=== PATIENT | female | born 1970 | race Caucasian/White ===

== ENCOUNTER 2017-01-19 05:13 | Day surgery (SDC) | payer OTHER ==
[2017-01-13 16:35] VITALS: BMI 26.9
[2017-01-19] MEDS ORDERED: ePHEDrine SULFATE 50 MG/1 ML AMPULE ONE (07:27)
[2017-01-19] MEDS ORDERED: PROPOFOL 20 ML ONE ×4 (07:28)
[2017-01-19] MEDS ORDERED: MIDAZOLAM HCL 2 MG/2 ML SINGLE DOSE VIAL ONE (07:28)
[2017-01-19] MEDS ORDERED: ROCURONIUM BROMIDE 50 MG/5 ML VIAL ONE (07:28)
[2017-01-19] MEDS ORDERED: ceFAZolin SODIUM 1 GM VIAL ONE (07:33)
[2017-01-19] MEDS ORDERED: LIDOCAINE HCL/PF 2% SDV 5ML VIAL ONE (07:33)
[2017-01-19] MEDS ORDERED: KETOROLAC TROMETHAMINE 30 MG/1 ML VIAL ONE (07:33)
[2017-01-19] MEDS ORDERED: DEXAMETHASONE SOD PHOSPHATE 4 MG/1 ML VIAL ONE (07:33)
[2017-01-19] MEDS ORDERED: ceFAZolin SODIUM 1 GM VIAL IVPB ONE (09:56)
[2017-01-19] MEDS ORDERED: NEOSTIGMINE METHYLSULFATE 0.5 MG/ML - 10 ML MDV ONE (10:05)
[2017-01-19] MEDS ORDERED: BUPIVACAINE HCL/PF 0.5% (5MG/ML) 10 ML VIAL IJ ONE (10:46)
[2017-01-19] MEDS ORDERED: oxyCODONE HCL 5 MG TABLET PO PRN (11:36)
[2017-01-19] MEDS ORDERED: ONDANSETRON 4 MG/2 ML VIAL IVPUSH PRN (11:36)
[2017-01-19] MEDS ORDERED: LACTATED RINGERS SOLUTION 1,000 ML IV SCH (11:45)
[2017-01-19 13:01] VITALS: PULSE 82; TEMP 97.6
--- NOTE | 2017-01-19 13:49 | HP ---
Satellite [facility] - Chief Complaint Chief Complaint: Ovarian cyst History of Present Illness: 46 yo who desires tubal and removal of ovarian cyst History Source: Patient Limitations to Obtaining History: No Limitations - Past Medical History Allergies/Adverse Reactions: Allergies Allergy/AdvReac Type Severity Reaction Status Date / Time aspirin Allergy Severe Itching Verified 01/19/17 07:54 naproxen sodium [From Aleve] Allergy Severe Itching Verified 01/19/17 07:54 erythromycin base Allergy Itching Verified 01/19/17 07:54 ...LMP: 12/24/16 ...: No - Current Medications Current Medications: Home Medications Medication Instructions Recorded Cetirizine HCl [Zyrtec -] 10 tab PO PRN PRN 01/13/17 Omeprazole 20 mg PO PRN PRN 01/13/17 Sumatriptan [Imitrex] 20 mg PO PRN PRN 01/13/17 Oxycodone HCl/Acetaminophen 1 tab PO Q4H #20 tablet MDD 6 01/19/17 [Percocet 5-325 mg Tablet -] Satellite Physical Exam - Physical Examination Vital Signs: Vital Signs Period Temp Pulse Resp BP Sys/Murillo Pulse Ox Last 24 Hr 97.3 F-98.5 F 71-86 16-20 104-118/61-80 97-100 General Appearance: Well Nourished, Well Developed ENT: Clear Lung: Clear to auscultation Heart: Regular rate & rhythm Breasts: Soft, Non-Tender Abdomen: Soft, No tenderness Extremities: No edema Pelvic Exam: Within normal limits External Genitalia, Within normal limits Vagina, Within normal limits Cervix, Within normal limits Uterus, Other [place] (Left ovarian cyst) Neurological: Intact, Alert, Oriented Satellite Impression/Plan - Impression/Plan Impression: Left ovarian cyst. voluntary sterilization Operative Procedure: robotic laparoscopic ovarian cystectomy. bilateral salpingectomy Date to be Performed: 01/19/17
[2017-01-19 14:01] VITALS: BP 141/82
--- NOTE | 2017-01-19 14:30 | OP ---
Operative Note - Note: Operative Date: 01/19/17 Pre-Operative Diagnosis: Ovarian cyst Operation: robotic laparoscopic laft ovarian cystectomy. bilateral salpingectomy Findings: 5 cm ovarian cystectomy hydrosalpinx of right tube Post-Operative Diagnosis: Same as Pre-op Surgeon: Felecia Dang [employer] Former: Margy Painter Anesthesia: General Estimated Blood Loss (mls): 10 Operative Report Dictated: Yes
--- NOTE | 2017-01-20 14:36 | PATH ---
Surgical Pathology Report Patient Name: JUSTIN MEZA [facility]. Rec. #: [id number] /Age/Gender: 1970 (Age: 46) / F Account: [id number] Location: [facility] Taken: 01/19/2017 Received: 01/19/2017 Reported: 01/20/2017 Physicians: Felecia Dang M.D. Specimen(s) Received A: LEFT OVARIAN CYST B: RIGHT FALLOPIAN TUBE C: LEFT FALLOPIAN TUBE Clinical History Ovarian cyst Final Diagnosis A. DESIGNATED LEFT OVARIAN CYST, EXCISION: FULL LUMINAL PORTION OF BENIGN FALLOPIAN TUBE INCLUDING FIMBRIATED END, WITH BENIGN SEROUS PARATUBAL CYST. B. DESIGNATED RIGHT FALLOPIAN TUBE, EXCISION: ENDOMETRIOMA, AND BENIGN SEROUS CYST. NO DEFINITE FALLOPIAN TUBE IDENTIFIED. C. DESIGNATED LEFT FALLOPIAN TUBE, EXCISION: BENIGN FALLOPIAN TUBE WITH ENDOMETRIOSIS, INCLUDING FIMBRIATED END. Electronically Signed Miguel Flannery M.D. Gross Description A. Received in formalin labeled "left ovarian cyst," is a 1.7 cm in length fimbriated portion of fallopian tube. The outer surface is barkley purple and smooth. Sectioning reveals an unremarkable lumen. Also received within the same container is a 2.0 x 1.7 x 0.6 cm zaman, irregular portion of soft tissue, consistent with a cyst. The outer surface is smooth. The lumen contains clear serous fluid. The specimen is entirely submitted in 3 cassettes as follows: 1-fallopian tube fimbria; 2-cross sections of fallopian tube; 3-cyst. B. Received in formalin labeled "right fallopian tube," is a 4 cm in length portion of tissue with the configuration of a tube. No definite fimbria are identified. The outer surface is barkley purple and smooth. Sectioning reveals a hemorrhagic, cystic lumen containing brown blood. Also received within the same container is a 3.0 x 1.7 x 0.8 cm zaman, irregular portion of soft tissue, consistent with a cyst. The outer surface is smooth. The lumen contains clear serous fluid. Panel Monitor sections are submitted in 4 cassettes as follows: 4-8-oydftbtayqmwwb fallopian tube; 6-4-jewtcamuriybgf cyst. C. Received in formalin labeled "left fallopian tube," is a 4 cm in length fimbriated portion of fallopian tube. The outer surface is barkley purple and smooth. Sectioning reveals a focally dilated lumen containing brown blood. Panel Monitor sections are submitted in 2 cassettes as follows: 1-fimbria; 2-cross sections of fallopian tube. 01/19/201701/19/2017
== END 2017-01-19 14:35 | disposition home or self-care (01) ==
LOC: JASU-SURG 05:13
PROVIDERS: ATTEND Obstetrics & Gynecology
PROC: 0UB14ZZ Excision of Left Ovary, Percutaneous Endoscopic Approach (ICD-10-PCS; principal; 2017-01-19 09:00)
PROC: 0UB74ZZ Excision of Bilateral Fallopian Tubes, Percutaneous Endoscopic Approach (ICD-10-PCS; 2017-01-19 09:00)
DX: N83.202 Unspecified ovarian cyst, left side (principal); N70.11 Chronic salpingitis
CPT/HCPCS: 58661; 58662; S2900; 84703; 88302-TC; 88305-TC; 94760

== ENCOUNTER 2019-03-06 21:09 | Emergency (ER) | payer OTHER ==
[2019-03-06 21:30] VITALS: BP 163/93; PULSE 91; TEMP 98.3; BMI 26.2
[2019-03-06] MEDS ORDERED: ACETAMINOPHEN/CAFFEINE/BUTALBITAL 1 TAB PO ONE (21:54)
[2019-03-06] MEDS ORDERED: PROCHLORPERAZINE INJECTION 10 MG/2 ML VIAL IM ONE (22:07)
--- NOTE | 2019-03-06 22:07 | PDOC ---
History of Present Illness - General Chief Complaint: Migraine Headache Stated Complaint: HEADACHE Time Seen by Provider: 03/06/19 21:39 History Source: Patient Exam Limitations: Clinical Condition - History of Present Illness Initial Comments: 03/06/19 21:56 Patient with history of migraine headaches on Imitrex present with complaint of persistent migraine headache not responding to her Imitrex for the past week. Patient reported headache has been worsening today with blurry vision and nausea. Patient reported having one episode of vomiting today. Patient reported she told neurologist that Imitrex has not been working for anymore but she was told to continue taking it for little longer. Denies any other symptoms Timing/Duration: reports: waxing and waning Past History - Past Medical History Allergies/Adverse Reactions: Allergies Allergy/AdvReac Type Severity Reaction Status Date / Time aspirin Allergy Severe Itching Verified 01/19/17 07:54 naproxen sodium [From Aleve] Allergy Severe Itching Verified 01/19/17 07:54 erythromycin base Allergy Itching Verified 01/19/17 07:54 Home Medications: Ambulatory Orders Cetirizine HCl [Zyrtec -] 10 tab PO PRN PRN 01/13/17 Omeprazole 20 mg PO PRN PRN 01/13/17 Sumatriptan [Imitrex] 20 mg PO PRN PRN 01/13/17 Oxycodone HCl/Acetaminophen [Percocet 5-325 mg Tablet -] 1 tab PO Q4H #20 tablet MDD 6 01/19/17 Butalb/Acetaminophen/Caffeine [Fioricet 50-300-40 mg Capsule] 1 each PO Q6H PRN #20 capsule 03/06/19 Anemia: No Asthma: No Cancer: No Cardiac Disorders: No CVA: No COPD: No CHF: No Dementia: No Diabetes: No GI Disorders: Yes Disorders: No HTN: No Hypercholesterolemia: No Liver Disease: No Seizures: No Thyroid Disease: No - Surgical History Abdominal Surgery: No Appendectomy: No Cardiac Surgery: No Cholecystectomy: No Lung Surgery: No Neurologic Surgery: No Orthopedic Surgery: No - Suicide/Smoking/Psychosocial Hx Smoking History: Never smoked Have you smoked in the past 12 months: No Hx Alcohol Use: No Drug/Substance Use Hx: No Substance Use Type: None Neuro Specific PMHX - Complaint Specific PMHX Glaucoma: No Herniated Disk: No Laminectomy: No Migraine: Yes Multiple Sclerosis: No Neuropathy: No TIA: No Review of Systems - Review of Systems Able to Perform ROS?: Yes Is the patient limited Uzbek proficient: No Constitutional: No: Weakness HEENTM: Yes: Symptoms Reported, See HPI, Blurred Vision. No: Double Vision Respiratory: No: Symptoms reported, See HPI, Cough, Orthopnea, Shortness of Breath, SOB with Exertion, SOB at Rest, Stridor, Wheezing, Productive cough, Hemoptysis, Other Cardiac (ROS): No: Symptoms Reported, See HPI, Chest Pain, Edema, Irregular Heart Rate, Lightheadedness, Palpitations, Syncope, Chest Tightness, Other ABD/GI: Yes: Symptoms Reported, See HPI, Nausea, Vomiting. No: Constipated, Diarrhea, Abdominal cramping Integumentary: No: Symptoms Reported Neurological: Yes: Symptoms reported, See HPI, Headache. No: Numbness, Paresthesia, Dizziness All Other Systems: Reviewed and Negative *Physical Exam - Vital Signs Last Vital Signs Temp Pulse Resp BP Pulse Ox 98.3 F 91 H 19 163/93 99 03/06/19 21:28 03/06/19 21:28 03/06/19 21:28 03/06/19 21:28 03/06/19 21:28 - Physical Exam Comments: 03/06/19 21:59 GENERAL: Well developed, well nourished. Awake and alert. No acute distress. HEENT: Normocephalic, atraumatic. PERRLA, EOMI. No conjunctival pallor. Sclera are non-icteric. Moist mucous membranes. Oropharynx is clear. NECK: Supple. Full ROM. CARDIOVASCULAR: Regular rate and rhythm. No murmurs, rubs, or gallops. Distal pulses are 2+ and symmetric. PULMONARY: No evidence of respiratory distress. Lungs clear to auscultation bilaterally. No wheezing, rales or rhonchi. ABDOMINAL: Soft. Non-tender. Non-distended. No rebound or guarding. No organomegaly. Normoactive bowel sounds. MUSCULOSKELETAL Normal range of motion at all joints. EXTREMITIES: No cyanosis. No clubbing. No edema. No calf tenderness. SKIN: Warm and dry. Normal capillary refill. No rashes. No jaundice. NEUROLOGICAL: Alert, awake, appropriate. Gait is normal without ataxia. PSYCHIATRIC: Cooperative. Good eye contact. Appropriate mood General Appearance: Yes: Nourished, Appropriately Dressed, Apparent Distress, Mild Distress Medical Decision Making - Medical Decision Making 03/06/19 22:18 Patient with history of migraine headaches on Imitrex present with complaint of persistent migraine headache not responding to her Imitrex for the past week. Patient reported headache has been worsening today with blurry vision and nausea. Patient reported having one episode of vomiting today. Patient reported she told and neurology that Imitrex has not been working for anymore but she was told to continue taking it for little longer. Denies any other symptoms No neuro deficit on exam. Lungs clear to auscultation bilateral. Normal neuro exam. symptoms likely migraine with aura. Compazine IM ordered for migraine. Frioricet by mouth ordered. Patient be discharged home on on fioricet with neurology follow-up *DC/Admit/Observation/Transfer Diagnosis at time of Disposition: Migraine with aura and without status migrainosus Qualifiers: Intractability: not intractable Qualified Code(s): G43.109 - Migraine with aura , not intractable, without status migrainosus - Discharge Dispostion Disposition: HOME Condition at time of disposition: Stable Decision to Admit order: No - Prescriptions Prescriptions: Butalb/Acetaminophen/Caffeine [Fioricet 50-300-40 mg Capsule] 1 each PO Q6H PRN #20 capsule PRN Reason: migraine - Referrals Referrals: Colton Springer MD [Staff Physician] - - Patient Instructions Printed Discharge Instructions: Migraine -- Adult, DI for Migraine Additional Instructions: Take medications as prescribed for migraines. Follow-up with referred neurologist - Post Discharge Activity
[2019-03-06] MEDS ORDERED: ACETAMINOPHEN/CAFFEINE/BUTALBITAL 1 TAB ONE (22:08)
[2019-03-06] MEDS ORDERED: PROCHLORPERAZINE INJECTION 10 MG/2 ML VIAL ONE (22:29)
== END 2019-03-06 22:50 | disposition home or self-care (01) ==
LOC: JERFT 21:09
PROC: 3E023GC Introduction of Other Therapeutic Substance into Muscle, Percutaneous Approach (ICD-10-PCS; principal; 2019-03-06)
DX: G43.109 Migraine with aura, not intractable, without status migrainosus (principal)
CPT/HCPCS: 96372; 99281-25

== ENCOUNTER 2019-06-20 07:57 | Day surgery (SDC) | payer OTHER ==
[2019-05-26 15:26] VITALS: BMI 26.5
--- NOTE | 2019-06-20 03:22 | HP ---
History & Physical Update - History History: No Change - Physical Physical: No Change - Assessment Assessment: No Change - Plan Plan: No Change (No change in HP)
--- NOTE | 2019-06-20 09:19 | OP ---
Operative Note - Note: Operative Date: 06/20/19 Pre-Operative Diagnosis: Endometrial polyp. submucosal myoma Operation: Hysteroscopic myomectomy. Suction DC Findings: endometrial polyps submucosal myoma Post-Operative Diagnosis: Same as Pre-op Surgeon: Felecia Dang Anesthesia: General Estimated Blood Loss (mls): 20 Operative Report Dictated: Yes
[2019-06-20] MEDS ORDERED: DEXAMETHASONE SODIUM PHOSPHATE 10 MG, DIPHENHYDRAMINE 50 MG, RANITIDINE INJECTION 50 MG... IVPB ONE (09:30)
[2019-06-20] MEDS ORDERED: ACETAMINOPHEN 325 MG TABLET (FP) PO ONE (09:30)
[2019-06-20] MEDS ORDERED: PALONOSETRON HCL 0.25 MG/5 ML VIAL IVPUSH ONE (09:30)
[2019-06-20] MEDS ORDERED: MIDAZOLAM HCL 2 MG/2 ML SINGLE DOSE VIAL ONE (09:30)
[2019-06-20] MEDS ORDERED: ONDANSETRON 4 MG/2 ML VIAL IVPUSH PRN (09:32)
[2019-06-20] MEDS ORDERED: oxyCODONE HCL 5 MG TABLET PO PRN (09:32)
[2019-06-20] MEDS ORDERED: SUCCINYLCHOLINE CHLORIDE 200 MG/10 ML SYRINGE ONE (09:44)
[2019-06-20] MEDS ORDERED: LACTATED RINGERS SOLUTION 1,000 ML IV SCH (09:45)
[2019-06-20] MEDS ORDERED: TRASTUZUMAB IVPB ONE (10:00)
[2019-06-20] MEDS ORDERED: SODIUM CHLORIDE IVPB ONE (10:00)
[2019-06-20] MEDS ORDERED: DEXAMETHASONE SOD PHOSPHATE 4 MG/1 ML VIAL ONE (10:11)
[2019-06-20] MEDS ORDERED: PACLITAXEL 132 MG in SODIUM CHLORIDE 250 ML IVPB ONE (11:30)
[2019-06-20 12:25] VITALS: TEMP 97.8
[2019-06-20 12:50] VITALS: BP 122/73; PULSE 75
--- NOTE | 2019-06-21 18:05 | PATH ---
Surgical Pathology Report Patient Name: JUSTIN MEZA [facility]. Rec. #: [id number] /Age/Gender: 1970 (Age: 49) / F Account: [id number] Location: [facility] Taken: 06/19/2019 Received: 06/20/2019 Reported: 06/21/2019 Physicians: Felecia Dang M.D. Specimen(s) Received A: FIBROID B: ENDOMETRIAL CURETTINGS Clinical History Endometrial polyps, hysteroscopic myomectomy Final Diagnosis A. FIBROID, EXCISION: FRAGMENTS OF ENDOMETRIAL POLYP. 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 B. ENDOMETRIAL CURETTING: FRAGMENTS OF ENDOMETRIAL POLYP. 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 SEPARATE PROLIFERATIVE ENDOMETRIUM. Electronically Signed Peggy Mariscal M.D. Gross Description A. Received in formalin, labeled "fibroid" are multiple zaman, irregular portions of soft tissue measuring 1.0 x 1.0 x 0.2 cm aggregate. The specimens are submitted in toto in one cassette. B. Received in formalin, labeled "endometrial curettings" are multiple dark brown portions of soft tissue measuring 3 x 3 x 0.3 cm in aggregate. The specimens are submitted in toto in 2 cassettes. JAS/06/20/2019 petty/06/20/2019
--- NOTE | 2019-06-27 15:52 | OP ---
DATE OF OPERATION: 06/20/2019 PREOPERATIVE DIAGNOSIS: Endometrial polyps. OPERATION: Hysteroscopic myomectomy, suction dilation and curettage. POSTOPERATIVE DIAGNOSIS: Endometrial polyps and submucosal myoma. SURGEON: Felecia Dang MD ANESTHESIA: General. DESCRIPTION OF PROCEDURE: Patient was taken to the operating room. Placed in dorsal lithotomy position. Prepped and draped in the usual sterile fashion. Time-out was performed in accordance with hospital regulation. Speculum was placed in the vagina. Anterior lip of the cervix was grasped with a tenaculum. The cervix was then dilated to accommodate the operative hysteroscope. Visualization of the endometrial polyps and submucosal myoma. Hysteroscopic myomectomy was performed, and polyp and myoma were removed followed by suction dilation and curettage and repeated this procedure until the endometrial cavity was noted to be within normal limits. All instruments were then removed. Patient tolerated the procedure well. Estimated blood loss was 20 mL. Patient was taken to the recovery room in stable condition. FELECIA DANG M.D. [id number]
== END 2019-06-20 12:40 | disposition home or self-care (01) ==
LOC: JASU-SURG 07:57
PROVIDERS: ATTEND Obstetrics & Gynecology
PROC: 0UDB8ZX Extraction of Endometrium, Via Natural or Artificial Opening Endoscopic, Diagnostic (ICD-10-PCS; 2019-06-20)
PROC: 0UB98ZZ Excision of Uterus, Via Natural or Artificial Opening Endoscopic (ICD-10-PCS; principal; 2019-06-20 09:30)
PROC: 0UB98ZX Excision of Uterus, Via Natural or Artificial Opening Endoscopic, Diagnostic (ICD-10-PCS; 2019-06-20 09:30)
DX: D25.0 Submucous leiomyoma of uterus (principal); N84.0 Polyp of corpus uteri
CPT/HCPCS: 36415; 84703; 86850; 86900; 86901; 88305-TC; 94760

== ENCOUNTER 2021-03-06 21:12 | Emergency (ER) | payer OTHER ==
[2021-03-06 21:25] VITALS: BP 138/86; PULSE 74; TEMP 98.2; BMI 27.4
[2021-03-06] MEDS ORDERED: CEPHALEXIN MONOHYDRATE 500 MG CAPSULE (UD) PO ONE (22:11)
[2021-03-06] MEDS ORDERED: diphenhydrAMINE HCL 25 MG CAPSULE (FP) PO ONE ×2 (22:11→22:20)
[2021-03-06] MEDS ORDERED: CEPHALEXIN MONOHYDRATE 500 MG CAPSULE (UD) ONE (22:21)
== END 2021-03-06 22:24 | disposition home or self-care (01) ==
LOC: FER 21:12
DX: S60.465A Insect bite (nonvenomous) of left ring finger, initial encounter (principal)
CPT/HCPCS: 99283-25

== ENCOUNTER 2021-05-10 04:03 | Emergency (ER) | payer OTHER ==
[2021-05-10 04:10] VITALS: BP 151/96; PULSE 87; TEMP 98.2; BMI 27.3
[2021-05-10] MEDS ORDERED: KETOROLAC TROMETHAMINE 60 MG/2 ML VIAL IM ONE (04:20)
[2021-05-10] MEDS ORDERED: METOCLOPRAMIDE HCL 10 MG TABLET (FP) PO ONE ×2 (04:21→04:26)
[2021-05-10] MEDS ORDERED: KETOROLAC TROMETHAMINE 60 MG/2 ML VIAL ONE (04:26)
== END 2021-05-10 04:56 | disposition home or self-care (01) ==
LOC: FER 04:03
PROC: 3E0233Z Introduction of Anti-inflammatory into Muscle, Percutaneous Approach (ICD-10-PCS; principal; 2021-05-10)
DX: G43.909 Migraine, unspecified, not intractable, without status migrainosus (principal)
CPT/HCPCS: 99283-25

== ENCOUNTER 2022-05-06 14:01 | Emergency (ER) | payer OTHER ==
[2022-05-06 14:07] VITALS: RESP 18; BMI 27.4
[2022-05-06 18:22] VITALS: BP 130/85; PULSE 69; TEMP 98.2
== END 2022-05-06 21:12 | disposition home or self-care (01) ==
LOC: JERFT 14:01
DX: T85.49XA Other mechanical complication of breast prosthesis and implant, initial encounter (principal)
CPT/HCPCS: 76642-TC-RT; 99284-25